=== PATIENT | female | born 1950 | race Two or more races ===

== ENCOUNTER 2023-07-19 11:12 | Emergency (ER) | payer OTHER ==
[~2023-07-19] VITALS: Ht 160 cm; Wt 63.0 kg
[2023-07-19] MEDS ORDERED: ENALAPRIL MALEAT5 MG PO (12:48)
[2023-07-19] MEDS ORDERED: DILTIAZEM 24HR240 MG PO (12:48)
[2023-07-19] MEDS ORDERED: ZOCOR20 MG PO (12:49)
[2023-07-19 15:28] LABS: HEMATOCRIT 41.8 % (36.0-45.00); HEMOGLOBIN 13.9 g/dL (12.0-15.00); MEAN CELL VOLUME 88.2 fL (80.00-100.00); MEAN CORPUSCULAR HEMOGLOBIN 29.3 pg (27.00-32.0); MEAN CORPUSCULAR HGB CONC 33.2 g/dl (32.0-36.0); PLATELET COUNT 296 K/uL (150-450); RED BLOOD COUNT 4.74 M/uL (4.00-6.00); RED CELL DISTRIBUTION WIDTH 12.9 % (11.5-14.5)
[2023-07-19 15:49] LABS: ALBUMIN 3.8 gm/dL (3.4-5.0); BILIRUBIN TOTAL 0.72 mg/dL (0.3-1.2); CALCIUM 9.4 mg/dL (8.5-10.1); CREATININE SERUM 0.8 mg/dL (0.55-1.02); GFR 70.12; GLOBULINA 3.4 G/DL (2.4-3.5); POTASSIUM 4.04 mEq/L (3.5-5.1); TOTAL PROTEIN 7.2 gm/dL (6.4-8.2)
[2023-07-19] MEDS ORDERED: PEPCID AC20 MG PO (15:49)
[2023-07-19] MEDS ORDERED: LEVSIN/SL0.125 MG SL (15:49)
== END 2023-07-19 16:05 | disposition home or self-care (01) ==
LOC: ER 11:13
PROVIDERS: General Practice
DX: R10.32 Left lower quadrant pain (principal); I10 Essential (primary) hypertension; Z87.09 Personal history of other diseases of the respiratory system; Z91.013 Allergy to seafood; K57.30 Diverticulosis of large intestine without perforation or abscess without bleeding
CPT/HCPCS: 36415; 74176; 96365; 96366; 99284; J1885; J2543; J3490; J7030

== ENCOUNTER 2024-11-17 05:25 | Day surgery (SDC) | payer OTHER ==
[2024-11-16 09:47] VITALS: BP 132/72
[2024-11-16 10:54] LABS: COVID-19 AG NEGATIVE (NEGATIVE)
[2024-11-16 11:16] LABS: PH,URINE 6.5 (5.0-8.0); URINE APPEARANCE Clear; URINE BILIRRUBIN Negative (NEGATIVE); URINE BLOOD Negative; URINE COLOR Yellow; URINE GLUCOSE Negative (NEGATIVE); URINE KETONE Negative (NEGATIVE); URINE LEUKOCYTE Moderate; URINE NITRATE Negative; URINE PROTEIN Trace (NEGATIVE); URINE UROBILINOGEN 0.2 E.U./dl
[2024-11-16 11:20] LABS: URINE RBC 13.4 uL (0.0-20.8); URINE WBC 57.8 uL (0.0-23.2)
[~2024-11-17] VITALS: Ht 160 cm; Wt 63.5 kg
[~2024-11-17 05:25] MED LIST: CLARITIN10 M1 PO; DILTIAZEM 24HR240 MG PO; ENALAPRIL MALEAT5 MG PO; LEVSIN/SL0.125 MG SL; NEURONTIN600 M1 PO; NEURONTIN800 MG PO; PEPCID AC20 MG PO; PROTONIX40 MG PO; ZOCOR20 MG PO
[2024-11-17] MEDS ORDERED: CEFAZOLIN SODIUM 1,000 MG VIAL ONE (10:04)
[2024-11-17] MEDS ORDERED: CHLORHEXIDINE GLUCONATE 120 ML BOTTLE TOP ONE (13:16)
[2024-11-17] MEDS ORDERED: MORPHINE SULFATE 2 MG/ML CARTRIDGE IV ONE (16:55)
[2024-11-22] MEDS ORDERED: CEFAZOLIN SODIUM 1,000 MG VIAL IV ONE (10:00)
[2024-11-22] MEDS ORDERED: CHLORHEXIDINE GLUCONATE 120 ML BOTTLE TOP ONE (10:00)
== END 2024-11-17 18:30 | disposition home or self-care (01) ==
LOC: CIR.AMB 05:25
PROVIDERS: ATTEND Surgery
DX: C50.111 Malignant neoplasm of central portion of right female breast (principal); R59.0 Localized enlarged lymph nodes; Z91.013 Allergy to seafood